=== PATIENT | male | born 1975 ===

== ENCOUNTER 2024-11-16 16:26 | Emergency (ER) | payer BC ==
[~2024-11-16] VITALS: Ht 182.9 cm; Wt 108.9 kg
[2024-11-16] MEDS ORDERED: IBUP800 PO (19:48)
[2024-11-16] MEDS ORDERED: METPRE4DP PO (19:48)
[2024-11-16] MEDS ORDERED: Ketorolac Tromethamine 30mg Vial IM ONE (20:00)
[2024-11-16 20:11] VITALS: BP 143/98
== END 2024-11-16 20:11 | disposition home or self-care (01) ==
LOC: ER 16:26
DX: M54.2 Cervicalgia (principal); R51.9 Headache, unspecified
CPT/HCPCS: 70450; 70498; 96372-59; 99283-25; J1885; Q9967